=== PATIENT | female | born 1950 | race African-American/Black ===

== ENCOUNTER → 2017-12-25 | Day surgery (SDC) | payer MEDICARE, MEDICAID ==
[~2017-12-25] MED LIST: LIDOCAINE 1% PF 2 ML VIAL. ID; MIDAZOLAM HCL/PF 2 MG/2 ML VIAL. IV; PROPOFOL 40 ML IV; fentaNYL PF VIAL 100 MCG/2 ML VIAL IV
[2017-12-25] MEDS: IV RINGERS,LACTATED 1000ML 1,000 ML IV (07:32)
== END ==
LOC: ENDOS 07:09
DX: D12.5 Benign neoplasm of sigmoid colon (principal); I10 Essential (primary) hypertension; F17.210 Nicotine dependence, cigarettes, uncomplicated; K57.30 Diverticulosis of large intestine without perforation or abscess without bleeding; K64.0 First degree hemorrhoids; J45.909 Unspecified asthma, uncomplicated; Z80.3 Family history of malignant neoplasm of breast; Z83.3 Family history of diabetes mellitus; Z82.49 Family history of ischemic heart disease and other diseases of the circulatory system; Z98.51 Tubal ligation status
CPT/HCPCS: 45385; 88305; J2704

== ENCOUNTER → 2019-12-22 | Outpatient (CLI) | payer MEDICARE, MEDICAID ==
[2017-12-25 08:50] VITALS: BP 126/70
[~2019-12-22] MED LIST changes: +AMLO10TA8 PO; +CHOL10003 PO; +CYAN-25 PO; -LIDOCAINE 1% PF 2 ML VIAL. ID; -MIDAZOLAM HCL/PF 2 MG/2 ML VIAL. IV; -PROPOFOL 40 ML IV; -fentaNYL PF VIAL 100 MCG/2 ML VIAL IV
--- NOTE | 2019-12-22 15:48 | KCIC ---
CHEST PA LATERAL INDICATION: Chest pain. COMPARISON STUDY: None. FINDINGS: Lungs: Normal lung volume. No pulmonary mass or consolidation. The tracheobronchial tree and hilar structures are normal. Pleura: No pleural effusion or pneumothorax. Heart and Mediastinum: The cardiomediastinal silhouette is normal. The great vessels of the thorax are normal. Bones and Soft Tissues: Degenerative changes of the spine. IMPRESSION: No acute cardiopulmonary process. Electronically signed by: Martín Burleson MD (12/22/2019 3:45 PM) [id number]
== END | disposition home or self-care (01) ==
LOC: KCIC 10:21
PROVIDERS: ATTEND Family Medicine
DX: R07.89 Other chest pain (principal)
CPT/HCPCS: 71046

== ENCOUNTER → 2020-07-19 | Outpatient (CLI) | payer MEDICARE, MEDICAID ==
[2017-12-25 08:50] VITALS: BP 126/70
--- NOTE | 2020-07-19 16:40 | KCIC ---
Five-view cervical spine series Clinical indications: Neck pain for one week. No known injury. Numbness in right hand. FINDINGS: No compression fracture discitis or lytic process or prevertebral soft tissue swelling is evident. There is minimal grade 1 anterolisthesis of C4-5 and C5-6 and C6-7 which may be physiologic in nature. There is degenerative facet arthropathy at these levels. There is moderate degenerative endplate spurring and disc space narrowing at C3-4 and C4-5 and C6-7 and moderate degenerative endplate spurring and mild disc space narrowing at C5-6. There is moderate degenerative disc space narrowing and mild degenerative endplate spurring at C7-T1. There is narrowing of of the left C4-5 foramen and the right C4-5 and C5-6 neural foramina. IMPRESSION: Degenerative cervical spondylosis. Electronically signed by: Wood Thomas MD (07/19/2020 4:37 PM) [id number]
== END | disposition home or self-care (01) ==
LOC: KCIC 09:41
PROVIDERS: ATTEND Family Medicine
DX: M47.812 Spondylosis without myelopathy or radiculopathy, cervical region (principal); M43.12 Spondylolisthesis, cervical region; M46.02 Spinal enthesopathy, cervical region; M48.02 Spinal stenosis, cervical region
CPT/HCPCS: 72050

== ENCOUNTER → 2020-08-05 | Outpatient (CLI) | payer MEDICARE, MEDICAID ==
[2017-12-25 08:50] VITALS: BP 126/70
--- NOTE | 2020-08-05 16:27 | KCIC ---
2 view study of the right femur Clinical indications: Contusion after a fall. Pain. Bruising. FINDINGS: No acute fracture or dislocation or lytic process is seen. Mild degenerative spurring of the right femoral head is seen. Popcorn-like calcification of the pelvis is seen secondary to uterine fibroid. IMPRESSION: No acute osseous abnormality. Electronically signed by: Wood Thomas MD (08/05/2020 4:24 PM) [id number]
== END ==
LOC: KCIC 11:04
PROVIDERS: ATTEND Family Medicine
DX: S80.11XA Contusion of right lower leg, initial encounter (principal); M77.8 Other enthesopathies, not elsewhere classified; D25.9 Leiomyoma of uterus, unspecified; X58.XXXA Exposure to other specified factors, initial encounter; Y93.89 Activity, other specified; Y92.89 Other specified places as the place of occurrence of the external cause; Y99.8 Other external cause status
CPT/HCPCS: 73552